=== PATIENT | female | born 1950 | race Caucasian/White ===

== ENCOUNTER → 2020-03-24 16:03 | Outpatient (CLI) | payer MEDICARE, SELFPAY ==
--- NOTE | ~2020-03-24 | MR_ITS ---
EXAMINATION: MR knee RT wo con DATE: 03/24/2020 16:33 INDICATION: Right knee primary osteoarthritis. TECHNIQUE: Magnetic resonance imaging (MRI) of the right knee was performed without intravenous contr ast. Sequences included axial PD-weighted FS FSE, coronal PD-weighted FSE and PD-weighted FS FSE, sag ittal PD-weighted FSE, and sagittal T2-weighted FS FSE. COMPARISON: Right knee radiographs 09/29/2019 FINDINGS: Medial compartment: There is maceration of medial meniscus. There is full-thickness cartilage loss of femoral condyle inv olving the central and medial aspects of the articular surface with moderate subchondral edema, corti yuval remodeling, and osteophytes. There is full-thickness cartilage loss of tibial condyle involving t he central and medial articular surface with mild subchondral edema, cortical remodeling, and osteoph ytes. There is partial-thickness cartilage loss of other portions of the femoral condyle and tibial c ondyle. Lateral compartment: Lateral meniscus is normal. There is deep partial thickness cartilage loss of tibial condyle involvin g the medial articular surface with moderate subchondral edema-like marrow signal intensity. There is deep partial thickness cartilage loss of femoral condyle involving the medial articular surface. The re is shallow partial-thickness cartilage loss of femoral condyle involving the central and lateral a rticular surface. Osteophytes are noted. Patellofemoral compartment: There is deep partial thickness cartilage loss of patellar lateral facet with mild subchondral edema- like marrow signal intensity. There is shallow partial-thickness cartilage loss of patellar medial fa cet. There is shallow partial-thickness cartilage loss of trochlea. Osteophytes are noted. Ligaments and tendons: Anterior and posterior cruciate ligaments are intact. There are changes of prior sprains of fibular c ollateral ligament and medial collateral ligament characterized by increased signal intensity proxima lly. There is mild patellar tendinopathy. Fluid: There is a moderate-sized knee joint effusion. There is a small Torrez's cyst. There is mild prepatell ar and superficial infrapatellar bursitis. IMPRESSION: 1. Severe chondrosis of medial compartment and moderate chondrosis of lateral and patellofemoral comp artments. 2. Maceration of medial meniscus. 3. Moderate-sized knee joint effusion. 4. Small Torrez's cyst. Reviewed, dictated and finalized at location A. IMPRESSION: 1. Severe chondrosis of medial compartment and moderate chondrosis of lateral a nd patellofemoral compartments. 2. Maceration of medial meniscus. 3. Moderate-sized knee joint effusion. 4. Small Torrez's cyst.
== END ==
PROVIDERS: PCP Internal Medicine; Visit Provider Orthopaedic Surgery
DX: M17.0 Bilateral primary osteoarthritis of knee (principal); M25.461 Effusion, right knee; M71.21 Synovial cyst of popliteal space [Baker], right knee
CPT/HCPCS: 73721